=== PATIENT | male | born 1950 ===

== ENCOUNTER 2017-10-24 20:43 | Inpatient (IN) ==
[2017-10-25] MEDS ORDERED: SODIUM CHLORIDE 0.9% 1,000 ML IV SCH (00:30)
[2017-10-25] MEDS ORDERED: SODIUM POLYSTYRENE SULFATE 15 GM/60 ML BOTTLE PO STA (00:52)
[2017-10-25 01:05] LABS: Basophils % 0.5 % (0.0-0.8); Eosinophils % 0.1 % (0.00-10.9); Hematocrit 22.6 VOL% (42.0-52.0); Hemoglobin 7.1 GM/DL (14.0-18.0); Immature Granulocytes % 2.1 %; Immature Granulocytes Absolute 0.17 #; Lymphocytes # 0.4 10*3/uL (1.4-4.0); Lymphocytes % 4.9 % (21.2-54.2); Mean Corpuscular HGB Conc 31.4 GM/DL (32-36); Mean Corpuscular Hemoglobin 31 PG (27-34); Mean Corpuscular Volume 97.4 FL (87-102); Mean Platelet Volume 10.2 FL (9.6-12.0); Monocytes # 0.5 10*3/uL (0.11-0.8); Monocytes % 5.6 % (1.7-12.7); NRBC # 0.05 10*3/uL; Neutrophils # 6.9 10*3/uL (1.4-7.4); Neutrophils % 86.8 % (38.7-73.9); Platelet Count 295 T/CUMM (130-400); Red Blood Count 2.32 MC/CUMM (3.8-5.5); Red Cell Distribution Width 14.9 % (9.3-17.3)
[2017-10-25 01:14] LABS: Albumin 2.3 G/DL (3.4-5.0); Bilirubin,Total 0.5 MG/DL (0.2-1.0); Calcium 6.7 MG/DL (8.5-10.1); Total Protein 6.7 G/DL (6.4-8.3)
[2017-10-25] MEDS: SODIUM BICARB INJ 100 MEQ in SODIUM CHLORIDE 0.9% 1,000 ML IV SCH ×2 (01:21→08:36)
[2017-10-25 01:24] LABS: Potassium 6.1 MMOL/L (3.5-5.1)
[2017-10-25 01:25] LABS: Apearance,Urine CLOUDY (Clear); Bacteria,Urine Many /HPF (Few); Bilirubin,Urine Negative (Negative); Blood, Urine Moderate mg/dL (Negative); Glucose,Urine (UA) 50 mg/dL (Negative); Ketones,Urine Negative (Negative); Nitrite,Urine Negative (Negative); Protein,Urine >=500 MG/DL; Urine Color Yellow (Yellow); Urine Specific Gravity 1.011 (1.001-1.035); Urine Urobilinogen < 2.0 EU/DL (0.2-1.0); WBC,Urine 3 /HPF (0-6)
[2017-10-25 01:48] LABS: Anisocytosis Slight; Lymphocytes 6 % (20-55); Macrocytosis 2+; Platelet Estimate Normal; Segmented Neutrophils 91 % (50-85); Total Cells Counted 100
[2017-10-25 02:05] LABS: Basophils % 0.5 % (0.0-0.8); Hematocrit 22.6 VOL% (42.0-52.0); Immature Granulocytes % 2.3 %; Immature Granulocytes Absolute 0.19 #; Lymphocytes # 0.3 10*3/uL (1.4-4.0); Lymphocytes % 4.2 % (21.2-54.2); Mean Corpuscular Hemoglobin 31 PG (27-34); Mean Corpuscular Volume 98.7 FL (87-102); Mean Platelet Volume 9.5 FL (9.6-12.0); Monocytes # 0.4 10*3/uL (0.11-0.8); Monocytes % 4.4 % (1.7-12.7); NRBC # 0.05 10*3/uL; Neutrophils # 7.2 10*3/uL (1.4-7.4); Neutrophils % 88.6 % (38.7-73.9); Platelet Count 301 T/CUMM (130-400); Red Blood Count 2.29 MC/CUMM (3.8-5.5); Red Cell Distribution Width 14.8 % (9.3-17.3); White Blood Count 8.1 T/CUMM (4-12)
[2017-10-25 02:31] LABS: Lymphocytes 6 % (20-55); Macrocytosis 2+; Platelet Estimate Normal; Segmented Neutrophils 91 % (50-85); Total Cells Counted 100
[2017-10-25 02:35] LABS: Albumin 2.7 G/DL (3.4-5.0); Bilirubin,Total 0.5 MG/DL (0.2-1.0); Calcium 6.5 MG/DL (8.5-10.1); Potassium 5.8 MMOL/L (3.5-5.1); Thyroid Stimulating Hormone 0.724 uIU/ml (0.358-3.74); Total Protein 6.7 G/DL (6.4-8.3)
[2017-10-25 03:08] LABS: Folate 6.1 NG/ML (5.4-24.0)
[2017-10-25] MEDS ORDERED: SODIUM BICARBONATE 50 MEQ/50 ML SYRINGE IV ONE ×3 (06:44→10:03)
[2017-10-25] MEDS ORDERED: INSULIN REGULAR 100 UNIT/ML IV ONE (06:45)
[2017-10-25] MEDS ORDERED: DEXTROSE 50% 25 GM/50 ML VIAL IV ONE (06:46)
[2017-10-25 07:15] LABS: ABG Base Excess -24.4 MMOL/L (-2.5-2.5); ABG HCO3 6.5 MMOL/L (20-26); ABG Oxygen Saturation 98.5 % (95-100); Allen Test Positive
[2017-10-25 07:18] LABS: ABG PCO2 12.5 MM HG (35-48); ABG PH 7.114 (7.35-7.45)
[2017-10-25] MEDS ORDERED: INSULIN LISPRO 100 UNIT/ML SUBCUT SCH (07:30)
[2017-10-25] MEDS ORDERED: ceFAZolin 1,000 MG in SYRINGE 1 EACH IV ONE (08:41)
[2017-10-25 08:43] LABS: INR 1.2; PT Patient Result 12.1 SECS; Partial Thromboplastin Time 37.7 SECS (0-40)
[2017-10-25 08:45] LABS: Lactic Acid 3.3 MMOL/L (0.4-2.0)
[2017-10-25 08:48] LABS: Fibrinogen Quant Value 553 MG% (200-400)
[2017-10-25 08:48] LABS: CKMB % 2.9 %
[2017-10-25 08:54] LABS: Troponin I Only 4.2 NG/ML (0.00-0.045)
[2017-10-25] MEDS ORDERED: amLODIPine 5 MG TABLET PO SCH (09:00)
[2017-10-25] MEDS ORDERED: SODIUM BICARB INJ 150 MEQ in DEXTROSE 5% 850 ML IV SCH (09:00)
[2017-10-25] MEDS ORDERED: PANTOPRAZOLE 40 MG TABLET PO SCH (09:00)
[2017-10-25] MEDS ORDERED: FERROUS SULFATE ER 140 MG TABLET PO SCH (09:00)
[2017-10-25] MEDS ORDERED: amLODIPine 10 MG TABLET PO SCH (09:00)
[2017-10-25] MEDS ORDERED: LIDOCAINE 1%/EPI INJ 20 ML VIAL ONE (09:17)
[2017-10-25] MEDS ORDERED: BUPIVACAINE MPF 0.25% 30 ML VIAL ONE (09:17)
[2017-10-25] MEDS ORDERED: HEPARIN 5,000 UNIT/1 ML VIAL ONE (09:17)
[2017-10-25] MEDS: CALCITRIOL 0.25 MCG CAPSULE PO SCH (09:22)
[2017-10-25] MEDS: ALBUMIN 25% 25 GM in PREMIX 1 EACH IV SCH ×2 (09:44→17:11)
[2017-10-25] MEDS: PANTOPRAZOLE 40 MG VIAL IV SCH (09:44)
[2017-10-25 09:47] LABS: Calcium 6.9 MG/DL (8.5-10.1); Osmolality,Calculated 351.6 MOS/KG (273-304)
[2017-10-25 09:55] LABS: Potassium 6.1 MMOL/L (3.5-5.1)
[2017-10-25] MEDS ORDERED: SODIUM BICARB INJ 150 MEQ in DEXTROSE 5% 1,000 ML IV SCH (10:00)
[2017-10-25 10:18] LABS: Hepatitis A Ab IgM Quant 0.22 Index; Hepatitis A Ab IgM Result Negative (Negative); Hepatitis B Core IgM Result Negative (Negative); Hepatitis B Surface Ag Quant 0.22 Index; Hepatitis B Surface Ag Result Negative (Negative); Hepatitis C Virus Ab Quant 0.11 Index; Hepatitis C Virus Ab Result Negative (Negative)
[2017-10-25] MEDS: NOREPINEPHRINE 8 MG in SODIUM CHLORIDE 0.9% 242 ML IV PRN (10:42)
[2017-10-25] MEDS ORDERED: MIDAZOLAM 2 MG/2 ML VIAL ONE (11:36)
[2017-10-25] MEDS: INSULIN REGULAR 100 UNIT/ML SUBCUT SCH ×3 (12:36→23:34)
[2017-10-25] MEDS ORDERED: EPOETIN ALFA 10,000 UNIT/1 ML VIAL IV PRN (12:58)
[2017-10-25] MEDS ORDERED: HEPARIN 10,000 UNIT/10 ML VIAL IV PRN (12:59)
[2017-10-25 16:30] LABS: Calcium 6.9 MG/DL (8.5-10.1); Potassium 3.3 MMOL/L (3.5-5.1)
[2017-10-25 16:59] LABS: ABG Base Excess -5.5 MMOL/L (-2.5-2.5); ABG HCO3 19.8 MMOL/L (20-26); ABG PCO2 28.4 MM HG (35-48); ABG TCO2 17.7 MMOL/L (23-27)
[2017-10-25 19:39] LABS: CKMB % 3.7 %
[2017-10-25 19:52] LABS: Troponin I Only 56.8 NG/ML (0.00-0.045)
[2017-10-25 20:07] LABS: Allen Test Positive
[2017-10-25 20:08] LABS: ABG Base Excess -5.4 MMOL/L (-2.5-2.5); ABG Oxygen Saturation 97.8 % (95-100); ABG PH 7.526 (7.35-7.45); ABG PO2 134.3 MM HG (80-95); ABG TCO2 17.6 MMOL/L (23-27)
[2017-10-25 20:43] LABS: Basophils % 0.1 % (0.0-0.8); Immature Granulocytes % 0.8 %; Immature Granulocytes Absolute 0.09 #; Lymphocytes # 0.3 10*3/uL (1.4-4.0); Lymphocytes % 2.1 % (21.2-54.2); Mean Corpuscular HGB Conc 33.5 GM/DL (32-36); Mean Corpuscular Hemoglobin 30 PG (27-34); Mean Corpuscular Volume 89.8 FL (87-102); Mean Platelet Volume 9.6 FL (9.6-12.0); Monocytes # 0.8 10*3/uL (0.11-0.8); Monocytes % 7.2 % (1.7-12.7); NRBC # 0.08 10*3/uL; Neutrophils # 10.5 10*3/uL (1.4-7.4); Neutrophils % 89.8 % (38.7-73.9); Platelet Count 196 T/CUMM (130-400); Red Blood Count 1.76 MC/CUMM (3.8-5.5); Red Cell Distribution Width 13.8 % (9.3-17.3); White Blood Count 11.7 T/CUMM (4-12)
[2017-10-25 20:48] LABS: Hemoglobin 5.3 GM/DL (14.0-18.0)
[2017-10-25 20:49] LABS: Hematocrit 15.8 VOL% (42.0-52.0)
[2017-10-25] MEDS ORDERED: INSULIN GLARGINE 100 UNIT/ML SUBCUT SCH (21:00)
[2017-10-25 21:02] LABS: Albumin 3.2 G/DL (3.4-5.0); Bilirubin,Total 0.6 MG/DL (0.2-1.0); Calcium 6.9 MG/DL (8.5-10.1); Osmolality,Calculated 312.1 MOS/KG (273-304); Potassium 3.2 MMOL/L (3.5-5.1); Total Protein 6.2 G/DL (6.4-8.3)
[2017-10-25] MEDS ORDERED: SODIUM CHLORIDE 0.9% 1,000 ML IV PRN (21:05)
[2017-10-25] MEDS ORDERED: FUROSEMIDE 40 MG/4 ML VIAL IV PRN (21:05)
[2017-10-25 21:26] LABS: Hypochromasia 1+; Macrocytosis Slight; Platelet Estimate Adequate
[2017-10-25] MEDS ORDERED: CALCIUM GLUCONATE 1,000 MG in SODIUM CHLORIDE 0.9% 100 ML IV ONE (21:30)
[2017-10-26] MEDS: ONDANSETRON 4 MG/2 ML VIAL IV PRN (01:07)
[2017-10-26] MEDS: ALBUMIN 25% 25 GM in PREMIX 1 EACH IV SCH ×4 (02:44→23:29)
[2017-10-26] MEDS: INSULIN REGULAR 100 UNIT/ML SUBCUT SCH ×3 (05:14→19:14)
[2017-10-26 05:55] LABS: % Iron Saturation 62.6 % (18-50); Uric Acid 6.6 MG/DL (3.5-7.2)
[2017-10-26 05:58] LABS: Albumin 3.1 G/DL (3.4-5.0); Calcium 6.9 MG/DL (8.5-10.1); Potassium 3.2 MMOL/L (3.5-5.1); Total Protein 6.4 G/DL (6.4-8.3)
[2017-10-26 06:57] LABS: Hematocrit 26.8 VOL% (42.0-52.0)
[2017-10-26 07:31] LABS: CKMB % 2.7 %
[2017-10-26 07:44] LABS: Troponin I Only 69.3 NG/ML (0.00-0.045)
[2017-10-26] MEDS ORDERED: SODIUM CHLORIDE 0.9% 1,000 ML IV ONE (09:57)
[2017-10-26] MEDS: ASPIRIN CHEW 81 MG TABLET PO SCH (11:10)
[2017-10-26] MEDS: CALCITRIOL 0.25 MCG CAPSULE PO SCH (11:10)
[2017-10-26] MEDS: PANTOPRAZOLE 40 MG VIAL IV SCH (11:10)
[2017-10-26] MEDS ORDERED: AMIODARONE 150 MG/3 ML VIAL ONE (19:29)
[2017-10-26] MEDS ORDERED: AMIODARONE INJ 150 MG in DEXTROSE 5% 100 ML IV ONE (19:29)
[2017-10-26] MEDS ORDERED: AMIODARONE INJ 450 MG in DEXTROSE 5% 241 ML IV SCH (19:30)
[2017-10-26] MEDS ORDERED: SODIUM CHLORIDE 0.9% 500 ML IV ONE (20:23)
[2017-10-27] MEDS: INSULIN REGULAR 100 UNIT/ML SUBCUT SCH ×5 (00:08→23:36)
[2017-10-27] MEDS: AMIODARONE INJ 450 MG in DEXTROSE 5% 241 ML IV SCH ×3 (05:37→22:32)
[2017-10-27 06:09] LABS: Calcium 7.4 MG/DL (8.5-10.1); Calcium 7.6 MG/DL (8.5-10.1); Osmolality,Calculated 295.5 MOS/KG (273-304); Potassium 3.1 MMOL/L (3.5-5.1)
[2017-10-27 06:15] LABS: Basophils % 0.2 % (0.0-0.8); Hematocrit 25.7 VOL% (42.0-52.0); Hemoglobin 8.9 GM/DL (14.0-18.0); Immature Granulocytes % 1.4 %; Immature Granulocytes Absolute 0.16 #; Lymphocytes # 0.5 10*3/uL (1.4-4.0); Lymphocytes % 4.5 % (21.2-54.2); Mean Corpuscular HGB Conc 34.6 GM/DL (32-36); Mean Corpuscular Hemoglobin 30 PG (27-34); Mean Corpuscular Volume 87.1 FL (87-102); Mean Platelet Volume 11.2 FL (9.6-12.0); Monocytes # 0.6 10*3/uL (0.11-0.8); Monocytes % 4.9 % (1.7-12.7); NRBC # 0.16 10*3/uL; Neutrophils # 10.3 10*3/uL (1.4-7.4); Red Cell Distribution Width 15.1 % (9.3-17.3); White Blood Count 11.6 T/CUMM (4-12)
[2017-10-27 06:17] LABS: Platelet Count 144 T/CUMM (130-400); Red Blood Count 2.95 MC/CUMM (3.8-5.5)
[2017-10-27 06:27] LABS: Band Neutrophils 1 % (0-10); Eosinophils 1 % (0-10); Giant Platelets Few; Hypochromasia 1+; Lymphocytes 6 % (20-55); Macrocytosis Slight; Nucleated Red Blood Cells 1 (0-5); Ovalocytes Slight; Platelet Estimate Normal; Segmented Neutrophils 85 % (50-85); Total Cells Counted 100
[2017-10-27] MEDS: PANTOPRAZOLE 40 MG VIAL IV SCH (09:50)
[2017-10-27] MEDS: CALCITRIOL 0.25 MCG CAPSULE PO SCH (09:50)
[2017-10-27] MEDS: ASPIRIN CHEW 81 MG TABLET PO SCH (09:50)
[2017-10-27] MEDS ORDERED: MAGNESIUM SULF RIDER 2 GM in PREMIX 1 EACH IV PRN (10:31)
[2017-10-27] MEDS: POTASSIUM CHLORIDE 20 MEQ TABLET PO SCH ×2 (13:57→16:02)
[2017-10-27] MEDS: ACETAMINOPHEN 325 MG TABLET PO PRN ×2 (14:33→18:42)
[2017-10-27] MEDS: MORPHINE 4 MG/1 ML VIAL IV PRN (20:02)
[2017-10-28 04:54] LABS: Basophils % 0.1 % (0.0-0.8); Hematocrit 27.6 VOL% (42.0-52.0); Hemoglobin 9.4 GM/DL (14.0-18.0); Immature Granulocytes % 2.2 %; Immature Granulocytes Absolute 0.33 #; Lymphocytes # 0.5 10*3/uL (1.4-4.0); Lymphocytes % 3.1 % (21.2-54.2); Mean Corpuscular HGB Conc 34.1 GM/DL (32-36); Mean Corpuscular Hemoglobin 30 PG (27-34); Mean Corpuscular Volume 88.5 FL (87-102); Mean Platelet Volume 11.4 FL (9.6-12.0); Monocytes # 0.8 10*3/uL (0.11-0.8); Monocytes % 5.3 % (1.7-12.7); NRBC # 0.26 10*3/uL; Neutrophils # 13.6 10*3/uL (1.4-7.4); Neutrophils % 89.3 % (38.7-73.9); Platelet Count 137 T/CUMM (130-400); Red Blood Count 3.12 MC/CUMM (3.8-5.5); Red Cell Distribution Width 15.2 % (9.3-17.3); White Blood Count 15.2 T/CUMM (4-12)
[2017-10-28 05:14] LABS: Calcium 8.5 MG/DL (8.5-10.1); Osmolality,Calculated 280.7 MOS/KG (273-304); Potassium 4.4 MMOL/L (3.5-5.1)
[2017-10-28 05:20] LABS: Calcium 8.6 MG/DL (8.5-10.1); Osmolality,Calculated 280.7 MOS/KG (273-304); Potassium 4.4 MMOL/L (3.5-5.1)
[2017-10-28 05:34] LABS: Band Neutrophils 5 % (0-10); Lymphocytes 8 % (20-55); Platelet Estimate Normal; Segmented Neutrophils 84 % (50-85); Total Cells Counted 100
[2017-10-28] MEDS ORDERED: ASPIRIN 325 MG TABLET PO ONE (06:00)
[2017-10-28] MEDS: MORPHINE 4 MG/1 ML VIAL IV PRN (06:55)
[2017-10-28] MEDS: INSULIN REGULAR 100 UNIT/ML SUBCUT SCH ×3 (06:55→19:04)
[2017-10-28] MEDS: ONDANSETRON 4 MG/2 ML VIAL IV PRN (07:36)
[2017-10-28] MEDS ORDERED: HEPARIN/NACL 0.9% 2 UNITS/ML 1,000 ML IV ONE (07:41)
[2017-10-28] MEDS ORDERED: LIDOCAINE 1% 20 ML VIAL ONE (07:41)
[2017-10-28] MEDS: AMIODARONE INJ 450 MG in DEXTROSE 5% 241 ML IV SCH ×3 (07:49→22:06)
[2017-10-28] MEDS ORDERED: fentaNYL 100 MCG/2 ML VIAL ONE (07:51)
[2017-10-28] MEDS ORDERED: MIDAZOLAM 2 MG/2 ML VIAL ONE (07:51)
[2017-10-28] MEDS ORDERED: DIAZEPAM 5 MG TABLET PO ONE (08:00)
[2017-10-28] MEDS ORDERED: diphenhydrAMINE CAP 25 MG CAPSULE PO ONE (08:00)
[2017-10-28] MEDS: PANTOPRAZOLE 40 MG VIAL IV SCH (09:43)
[2017-10-28] MEDS: CALCITRIOL 0.25 MCG CAPSULE PO SCH (09:48)
[2017-10-28] MEDS: ASPIRIN CHEW 81 MG TABLET PO SCH (09:48)
[2017-10-28] MEDS: NOREPINEPHRINE 8 MG in SODIUM CHLORIDE 0.9% 242 ML IV PRN (15:11)
[2017-10-29] MEDS: INSULIN REGULAR 100 UNIT/ML SUBCUT SCH ×5 (00:03→23:56)
[2017-10-29] MEDS: AMIODARONE INJ 450 MG in DEXTROSE 5% 241 ML IV SCH (05:15)
[2017-10-29] MEDS: ACETAMINOPHEN 325 MG TABLET PO PRN ×2 (05:37→11:19)
[2017-10-29 05:45] LABS: Basophils % 0.2 % (0.0-0.8); Eosinophils # 0.1 10*3/uL (0.0-0.87); Eosinophils % 0.5 % (0.00-10.9); Hematocrit 28.1 VOL% (42.0-52.0); Hemoglobin 9.2 GM/DL (14.0-18.0); Immature Granulocytes % 4.5 %; Immature Granulocytes Absolute 0.61 #; Lymphocytes # 1.1 10*3/uL (1.4-4.0); Lymphocytes % 8.4 % (21.2-54.2); Mean Corpuscular HGB Conc 32.7 GM/DL (32-36); Mean Corpuscular Hemoglobin 30 PG (27-34); Mean Corpuscular Volume 91.8 FL (87-102); Mean Platelet Volume 12.2 FL (9.6-12.0); Monocytes # 0.9 10*3/uL (0.11-0.8); Monocytes % 6.8 % (1.7-12.7); NRBC # 1.01 10*3/uL; Neutrophils # 10.8 10*3/uL (1.4-7.4); Neutrophils % 79.6 % (38.7-73.9); Platelet Count 135 T/CUMM (130-400); Red Blood Count 3.06 MC/CUMM (3.8-5.5); White Blood Count 13.5 T/CUMM (4-12)
[2017-10-29 06:05] LABS: Calcium 8.5 MG/DL (8.5-10.1); Osmolality,Calculated 287.7 MOS/KG (273-304); Potassium 4.2 MMOL/L (3.5-5.1)
[2017-10-29 06:09] LABS: Band Neutrophils 1 % (0-10); Lymphocytes 7 % (20-55); Nucleated Red Blood Cells 7 (0-5); Segmented Neutrophils 91 % (50-85); Total Cells Counted 100
[2017-10-29 06:10] LABS: Microcytosis Slight; Platelet Estimate Adequate
[2017-10-29] MEDS: CALCITRIOL 0.25 MCG CAPSULE PO SCH (09:28)
[2017-10-29] MEDS: ASPIRIN CHEW 81 MG TABLET PO SCH (09:28)
[2017-10-29] MEDS: AMIODARONE 200 MG TABLET PO SCH ×2 (09:29→21:11)
[2017-10-29] MEDS: PANTOPRAZOLE 40 MG VIAL IV SCH ×2 (09:29→10:25)
[2017-10-29] MEDS: PANTOPRAZOLE 40 MG TABLET PO SCH (10:32)
[2017-10-29] MEDS: MORPHINE 4 MG/1 ML VIAL IV PRN (14:50)
[2017-10-30 03:46] LABS: Basophils % 0.3 % (0.0-0.8); Eosinophils # 0.1 10*3/uL (0.0-0.87); Eosinophils % 1.4 % (0.00-10.9); Hematocrit 27.6 VOL% (42.0-52.0); Hemoglobin 9.3 GM/DL (14.0-18.0); Immature Granulocytes % 4.3 %; Immature Granulocytes Absolute 0.43 #; Lymphocytes # 0.6 10*3/uL (1.4-4.0); Lymphocytes % 6.4 % (21.2-54.2); Mean Corpuscular HGB Conc 33.7 GM/DL (32-36); Mean Corpuscular Hemoglobin 30 PG (27-34); Mean Platelet Volume 12.9 FL (9.6-12.0); Monocytes # 0.9 10*3/uL (0.11-0.8); Monocytes % 8.6 % (1.7-12.7); NRBC # 0.76 10*3/uL; Neutrophils # 7.9 10*3/uL (1.4-7.4); Platelet Count 108 T/CUMM (130-400); Red Cell Distribution Width 14.6 % (9.3-17.3)
[2017-10-30 04:13] LABS: Calcium 8.3 MG/DL (8.5-10.1); Osmolality,Calculated 280.7 MOS/KG (273-304); Potassium 3.6 MMOL/L (3.5-5.1)
[2017-10-30] MEDS: INSULIN REGULAR 100 UNIT/ML SUBCUT SCH ×3 (05:59→18:00)
[2017-10-30] MEDS ORDERED: HEPARIN 5,000 UNIT/1 ML VIAL IV ONE (07:38)
[2017-10-30] MEDS: HEPARIN DRIP 25,000 UNITS/500 ML PREMIX IV SCH (08:55)
[2017-10-30] MEDS: AMIODARONE 200 MG TABLET PO SCH ×2 (09:00→21:10)
[2017-10-30] MEDS: ASPIRIN CHEW 81 MG TABLET PO SCH (09:00)
[2017-10-30] MEDS: ROSUVASTATIN 20 MG TABLET PO SCH (09:00)
[2017-10-30] MEDS: CALCITRIOL 0.25 MCG CAPSULE PO SCH (09:00)
[2017-10-30] MEDS: PANTOPRAZOLE 40 MG TABLET PO SCH (09:00)
[2017-10-30] MEDS: MORPHINE 4 MG/1 ML VIAL IV PRN ×3 (09:05→20:35)
[2017-10-30] MEDS ORDERED: ceFAZolin 1,000 MG in SYRINGE 1 EACH IV ONE (10:57)
[2017-10-30] MEDS ORDERED: fentaNYL 100 MCG/2 ML VIAL IV ONE (10:57)
[2017-10-30] MEDS ORDERED: MIDAZOLAM 2 MG/2 ML VIAL IV ONE (10:57)
[2017-10-30] MEDS ORDERED: HEPARIN/NACL 0.9% 2 UNITS/ML 2,000 ML IV ONE (11:04)
[2017-10-30] MEDS ORDERED: ALTEPLASE 6 MG in SODIUM CHLORIDE 0.9% 120 ML IV ONE (11:30)
[2017-10-30] MEDS ORDERED: fentaNYL 100 MCG/2 ML VIAL ONE (11:33)
[2017-10-30] MEDS ORDERED: MIDAZOLAM 2 MG/2 ML VIAL ONE (11:34)
[2017-10-30] MEDS ORDERED: ceFAZolin 1,000 MG VIAL ONE (11:39)
[2017-10-30] MEDS: ACETAMINOPHEN 325 MG TABLET PO PRN (14:30)
[2017-10-31] MEDS: INSULIN REGULAR 100 UNIT/ML SUBCUT SCH ×5 (00:26→21:37)
[2017-10-31 01:55] LABS: Basophils % 0.1 % (0.0-0.8); Eosinophils % 0.2 % (0.00-10.9); Hematocrit 25.5 VOL% (42.0-52.0); Hemoglobin 8.3 GM/DL (14.0-18.0); Immature Granulocytes % 2.4 %; Immature Granulocytes Absolute 0.31 #; Lymphocytes # 0.4 10*3/uL (1.4-4.0); Lymphocytes % 2.7 % (21.2-54.2); Mean Corpuscular HGB Conc 32.5 GM/DL (32-36); Mean Corpuscular Hemoglobin 30 PG (27-34); Mean Corpuscular Volume 93.1 FL (87-102); Mean Platelet Volume 12.6 FL (9.6-12.0); Monocytes # 1.2 10*3/uL (0.11-0.8); Monocytes % 9.1 % (1.7-12.7); NRBC # 0.37 10*3/uL; Neutrophils % 85.5 % (38.7-73.9); Red Blood Count 2.74 MC/CUMM (3.8-5.5); Red Cell Distribution Width 14.6 % (9.3-17.3); White Blood Count 12.9 T/CUMM (4-12)
[2017-10-31 02:04] LABS: Platelet Count 98 T/CUMM (130-400)
[2017-10-31 02:06] LABS: Calcium 7.4 MG/DL (8.5-10.1); Osmolality,Calculated 289.7 MOS/KG (273-304); Potassium 4.2 MMOL/L (3.5-5.1)
[2017-10-31 03:11] LABS: Eosinophils 1 % (0-10); Lymphocytes 2 % (20-55); Nucleated Red Blood Cells 2 (0-5); Segmented Neutrophils 89 % (50-85)
[2017-10-31 03:12] LABS: Burr Cells 2+; Hypochromasia Slight; Platelet Estimate Decreased; Polychromasia 1+
[2017-10-31 03:13] LABS: Ovalocytes 1+; Total Cells Counted 100
[2017-10-31] MEDS: MORPHINE 4 MG/1 ML VIAL IV PRN (06:06)
[2017-10-31] MEDS: AMIODARONE 200 MG TABLET PO SCH ×2 (08:30→21:37)
[2017-10-31] MEDS: CALCITRIOL 0.25 MCG CAPSULE PO SCH (08:30)
[2017-10-31] MEDS: PANTOPRAZOLE 40 MG TABLET PO SCH (08:30)
[2017-10-31] MEDS: ASPIRIN CHEW 81 MG TABLET PO SCH (08:30)
[2017-10-31] MEDS: ROSUVASTATIN 20 MG TABLET PO SCH (08:30)
[2017-10-31] MEDS: NOREPINEPHRINE 8 MG in SODIUM CHLORIDE 0.9% 242 ML IV PRN (10:25)
[2017-10-31] MEDS: HEPARIN DRIP 25,000 UNITS/500 ML PREMIX IV SCH (20:45)
[2017-11-01 03:27] LABS: ABG HCO3 24.2 MMOL/L (20-26); ABG PCO2 37.3 MM HG (35-48); ABG TCO2 25.3 MMOL/L (23-27); Allen Test Positive
[2017-11-01 04:50] LABS: Basophils % 0.2 % (0.0-0.8); Eosinophils # 0.1 10*3/uL (0.0-0.87); Eosinophils % 0.6 % (0.00-10.9); Hematocrit 27.8 VOL% (42.0-52.0); Hemoglobin 8.9 GM/DL (14.0-18.0); Immature Granulocytes % 3.6 %; Immature Granulocytes Absolute 0.59 #; Lymphocytes # 0.7 10*3/uL (1.4-4.0); Lymphocytes % 4.1 % (21.2-54.2); Mean Corpuscular Hemoglobin 30 PG (27-34); Mean Corpuscular Volume 94.2 FL (87-102); Monocytes # 1.5 10*3/uL (0.11-0.8); Monocytes % 9.1 % (1.7-12.7); Neutrophils # 13.4 10*3/uL (1.4-7.4); Neutrophils % 82.4 % (38.7-73.9); Platelet Count 117 T/CUMM (130-400); Red Blood Count 2.95 MC/CUMM (3.8-5.5); Red Cell Distribution Width 15.7 % (9.3-17.3); White Blood Count 16.2 T/CUMM (4-12)
[2017-11-01 05:14] LABS: Calcium 7.3 MG/DL (8.5-10.1); Osmolality,Calculated 282.7 MOS/KG (273-304)
[2017-11-01] MEDS: HEPARIN DRIP 25,000 UNITS/500 ML PREMIX IV SCH ×2 (05:26→20:13)
[2017-11-01 05:37] LABS: Anisocytosis 1+; Band Neutrophils 12 % (0-10); Lymphocytes 6 % (20-55); Nucleated Red Blood Cells 1 (0-5); Poikilocytosis 1+; Segmented Neutrophils 80 % (50-85); Total Cells Counted 100
[2017-11-01] MEDS: INSULIN REGULAR 100 UNIT/ML SUBCUT SCH ×4 (08:17→20:41)
[2017-11-01] MEDS: CALCITRIOL 0.25 MCG CAPSULE PO SCH (09:17)
[2017-11-01] MEDS: ROSUVASTATIN 20 MG TABLET PO SCH (09:18)
[2017-11-01] MEDS: AMIODARONE 200 MG TABLET PO SCH ×2 (09:18→20:40)
[2017-11-01] MEDS: PANTOPRAZOLE 40 MG TABLET PO SCH (09:18)
[2017-11-01] MEDS: ASPIRIN CHEW 81 MG TABLET PO SCH (09:18)
[2017-11-01] MEDS: ONDANSETRON 4 MG/2 ML VIAL IV PRN ×2 (12:15→16:53)
[2017-11-01] MEDS: NOREPINEPHRINE 8 MG in SODIUM CHLORIDE 0.9% 242 ML IV PRN (19:25)
[2017-11-02 04:37] LABS: Basophils % 0.1 % (0.0-0.8); Eosinophils # 0.1 10*3/uL (0.0-0.87); Eosinophils % 0.8 % (0.00-10.9); Hematocrit 25.5 VOL% (42.0-52.0); Hemoglobin 8.2 GM/DL (14.0-18.0); Immature Granulocytes Absolute 0.26 #; Lymphocytes # 0.5 10*3/uL (1.4-4.0); Lymphocytes % 3.8 % (21.2-54.2); Mean Corpuscular HGB Conc 32.2 GM/DL (32-36); Mean Corpuscular Hemoglobin 31 PG (27-34); Mean Corpuscular Volume 95.5 FL (87-102); Mean Platelet Volume 12.9 FL (9.6-12.0); Monocytes % 7.4 % (1.7-12.7); NRBC # 0.12 10*3/uL; Neutrophils # 11.2 10*3/uL (1.4-7.4); Neutrophils % 85.9 % (38.7-73.9); Platelet Count 103 T/CUMM (130-400); Red Blood Count 2.67 MC/CUMM (3.8-5.5); Red Cell Distribution Width 16.4 % (9.3-17.3)
[2017-11-02 05:04] LABS: Albumin 2.5 G/DL (3.4-5.0); Calcium 7.1 MG/DL (8.5-10.1); Osmolality,Calculated 281.2 MOS/KG (273-304); Potassium 4.6 MMOL/L (3.5-5.1); Total Protein 5.8 G/DL (6.4-8.3)
[2017-11-02 05:28] LABS: Eosinophils 1 % (0-10); Lymphocytes 3 % (20-55); Nucleated Red Blood Cells 1 (0-5); Segmented Neutrophils 88 % (50-85); Total Cells Counted 100
[2017-11-02 05:30] LABS: Giant Platelets Few; Hypochromasia 1+; Platelet Estimate Decreased; Polychromasia Few
[2017-11-02] MEDS: INSULIN REGULAR 100 UNIT/ML SUBCUT SCH ×4 (07:49→22:05)
[2017-11-02] MEDS: ASPIRIN CHEW 81 MG TABLET PO SCH (09:39)
[2017-11-02] MEDS: ROSUVASTATIN 20 MG TABLET PO SCH (09:39)
[2017-11-02] MEDS: AMIODARONE 200 MG TABLET PO SCH ×2 (09:39→22:05)
[2017-11-02] MEDS: CALCITRIOL 0.25 MCG CAPSULE PO SCH (09:39)
[2017-11-02] MEDS: PANTOPRAZOLE 40 MG TABLET PO SCH (09:39)
[2017-11-02] MEDS: HEPARIN DRIP 25,000 UNITS/500 ML PREMIX IV SCH (14:02)
[2017-11-03 04:33] LABS: Basophils % 0.1 % (0.0-0.8); Eosinophils # 0.1 10*3/uL (0.0-0.87); Eosinophils % 0.7 % (0.00-10.9); Hematocrit 25.1 VOL% (42.0-52.0); Immature Granulocytes % 1.9 %; Immature Granulocytes Absolute 0.22 #; Lymphocytes # 0.4 10*3/uL (1.4-4.0); Lymphocytes % 3.4 % (21.2-54.2); Mean Corpuscular HGB Conc 31.9 GM/DL (32-36); Mean Corpuscular Hemoglobin 30 PG (27-34); Mean Corpuscular Volume 93.3 FL (87-102); Mean Platelet Volume 12.9 FL (9.6-12.0); Monocytes # 0.6 10*3/uL (0.11-0.8); Monocytes % 5.6 % (1.7-12.7); NRBC # 0.03 10*3/uL; Neutrophils # 10.1 10*3/uL (1.4-7.4); Neutrophils % 88.3 % (38.7-73.9); Platelet Count 127 T/CUMM (130-400); Red Blood Count 2.69 MC/CUMM (3.8-5.5); Red Cell Distribution Width 17.2 % (9.3-17.3); White Blood Count 11.5 T/CUMM (4-12)
[2017-11-03 05:05] LABS: Calcium 7.4 MG/DL (8.5-10.1); Osmolality,Calculated 277.7 MOS/KG (273-304)
[2017-11-03 05:15] LABS: Eosinophils 1 % (0-10); Hypochromasia 1+; Lymphocytes 5 % (20-55); Nucleated Red Blood Cells 1 (0-5); Ovalocytes Slight; Platelet Estimate Normal; Segmented Neutrophils 92 % (50-85); Total Cells Counted 100
[2017-11-03 05:18] LABS: Albumin 2.8 G/DL (3.4-5.0); Bilirubin,Total 0.9 MG/DL (0.2-1.0); Calcium 7.1 MG/DL (8.5-10.1); Osmolality,Calculated 277.7 MOS/KG (273-304); Total Protein 6.2 G/DL (6.4-8.3)
[2017-11-03] MEDS: INSULIN REGULAR 100 UNIT/ML SUBCUT SCH ×4 (07:30→21:30)
[2017-11-03] MEDS ORDERED: ceFAZolin 1,000 MG in SYRINGE 1 EACH IV ONE (08:00)
[2017-11-03] MEDS ORDERED: VANCOMYCIN 500 MG VIAL ONE (08:03)
[2017-11-03] MEDS: SODIUM CHLORIDE 0.9% 250 ML IV SCH (08:25)
[2017-11-03] MEDS ORDERED: ceFAZolin 1,000 MG VIAL ONE (08:29)
[2017-11-03] MEDS ORDERED: PROPOFOL 200 MG/20 ML VIAL IV ONE (09:24)
[2017-11-03] MEDS ORDERED: GLYCOPYRROLATE 0.4 MG/2 ML VIAL ONE (09:24)
[2017-11-03] MEDS ORDERED: fentaNYL 100 MCG/2 ML VIAL ONE (09:24)
[2017-11-03] MEDS ORDERED: SEVOFLURANE 1 UNIT/15 MINUTE INH ONE (09:24)
[2017-11-03] MEDS ORDERED: PHENYLEPHRINE 1 MG/10 ML SYRINGE IV ONE (09:25)
[2017-11-03] MEDS ORDERED: DEXTROSE 50% 25 GM/50 ML VIAL IV PRN (09:31)
[2017-11-03] MEDS ORDERED: GLUCAGON 1 MG VIAL IM PRN (09:31)
[2017-11-03] MEDS: MORPHINE 4 MG/1 ML VIAL IV PRN ×2 (10:55→20:34)
[2017-11-03] MEDS ORDERED: KETOROLAC 30 MG/1 ML VIAL IV ONE (12:07)
[2017-11-03] MEDS: PANTOPRAZOLE 40 MG TABLET PO SCH (13:39)
[2017-11-03] MEDS: ROSUVASTATIN 20 MG TABLET PO SCH (13:39)
[2017-11-03] MEDS: CALCITRIOL 0.25 MCG CAPSULE PO SCH (13:39)
[2017-11-03] MEDS: AMIODARONE 200 MG TABLET PO SCH ×2 (13:39→21:30)
[2017-11-03] MEDS: ASPIRIN CHEW 81 MG TABLET PO SCH (13:42)
[2017-11-03] MEDS: KETOROLAC 10 MG TABLET PO PRN (15:10)
[2017-11-04 04:58] LABS: Basophils % 0.3 % (0.0-0.8); Eosinophils % 0.3 % (0.00-10.9); Hematocrit 32.9 VOL% (42.0-52.0); Immature Granulocytes % 1.2 %; Immature Granulocytes Absolute 0.13 #; Lymphocytes # 0.4 10*3/uL (1.4-4.0); Lymphocytes % 3.6 % (21.2-54.2); Mean Corpuscular HGB Conc 33.1 GM/DL (32-36); Mean Corpuscular Hemoglobin 30 PG (27-34); Mean Corpuscular Volume 90.4 FL (87-102); Monocytes # 0.7 10*3/uL (0.11-0.8); Monocytes % 6.2 % (1.7-12.7); NRBC # 0.03 10*3/uL; Neutrophils # 9.8 10*3/uL (1.4-7.4); Neutrophils % 88.4 % (38.7-73.9); Platelet Count 110 T/CUMM (130-400); Red Blood Count 3.64 MC/CUMM (3.8-5.5); Red Cell Distribution Width 16.4 % (9.3-17.3); White Blood Count 11.1 T/CUMM (4-12)
[2017-11-04 05:01] LABS: Hemoglobin 10.9 GM/DL (14.0-18.0)
[2017-11-04 05:25] LABS: Calcium 7.6 MG/DL (8.5-10.1); Potassium 4.2 MMOL/L (3.5-5.1)
[2017-11-04 05:28] LABS: Albumin 2.8 G/DL (3.4-5.0); Bilirubin,Total 1.3 MG/DL (0.2-1.0); Calcium 7.6 MG/DL (8.5-10.1); Potassium 4.3 MMOL/L (3.5-5.1); Total Protein 6.6 G/DL (6.4-8.3)
[2017-11-04 06:38] LABS: Band Neutrophils 14 % (0-10); Lymphocytes 2 % (20-55); Segmented Neutrophils 78 % (50-85); Total Cells Counted 100
[2017-11-04 06:39] LABS: Acanthocytes 1+; Anisocytosis 1+; Poikilocytosis 2+
[2017-11-04 06:41] LABS: Target Cells Slight
[2017-11-04] MEDS: SODIUM CHLORIDE 0.9% 250 ML IV SCH ×2 (07:00→10:00)
[2017-11-04] MEDS: AMIODARONE 200 MG TABLET PO SCH ×2 (08:50→20:29)
[2017-11-04] MEDS: CALCITRIOL 0.25 MCG CAPSULE PO SCH (08:50)
[2017-11-04] MEDS: PANTOPRAZOLE 40 MG TABLET PO SCH (08:50)
[2017-11-04] MEDS: ASPIRIN CHEW 81 MG TABLET PO SCH (08:50)
[2017-11-04] MEDS: CARVEDILOL 3.125 MG TABLET PO SCH ×2 (08:50→20:29)
[2017-11-04] MEDS: ROSUVASTATIN 20 MG TABLET PO SCH (08:50)
[2017-11-04] MEDS: INSULIN REGULAR 100 UNIT/ML SUBCUT SCH ×4 (08:50→20:29)
[2017-11-04] MEDS: NOREPINEPHRINE 8 MG in SODIUM CHLORIDE 0.9% 242 ML IV PRN (19:05)
[2017-11-04] MEDS: MORPHINE 4 MG/1 ML VIAL IV PRN (21:58)
[2017-11-05] MEDS: SODIUM CHLORIDE 0.9% 250 ML IV SCH ×3 (01:26→22:31)
[2017-11-05 04:19] LABS: Basophils % 0.3 % (0.0-0.8); Eosinophils # 0.1 10*3/uL (0.0-0.87); Eosinophils % 0.5 % (0.00-10.9); Hematocrit 33.6 VOL% (42.0-52.0); Hemoglobin 11.1 GM/DL (14.0-18.0); Immature Granulocytes Absolute 0.12 #; Lymphocytes # 0.4 10*3/uL (1.4-4.0); Lymphocytes % 3.4 % (21.2-54.2); Mean Corpuscular Hemoglobin 30 PG (27-34); Mean Corpuscular Volume 90.3 FL (87-102); Mean Platelet Volume 12.4 FL (9.6-12.0); Monocytes # 0.6 10*3/uL (0.11-0.8); Monocytes % 4.7 % (1.7-12.7); NRBC # 0.05 10*3/uL; Neutrophils # 10.6 10*3/uL (1.4-7.4); Neutrophils % 90.1 % (38.7-73.9); Platelet Count 136 T/CUMM (130-400); Red Blood Count 3.72 MC/CUMM (3.8-5.5); Red Cell Distribution Width 16.4 % (9.3-17.3); White Blood Count 11.8 T/CUMM (4-12)
[2017-11-05 05:00] LABS: Eosinophils 4 % (0-10); Hypochromasia 1+; Lymphocytes 5 % (20-55); Ovalocytes Slight; Platelet Estimate Normal; Segmented Neutrophils 84 % (50-85); Total Cells Counted 100
[2017-11-05 05:28] LABS: Calcium 7.6 MG/DL (8.5-10.1); Osmolality,Calculated 275.5 MOS/KG (273-304)
[2017-11-05] MEDS: INSULIN REGULAR 100 UNIT/ML SUBCUT SCH ×4 (08:41→20:01)
[2017-11-05] MEDS: CALCITRIOL 0.25 MCG CAPSULE PO SCH (08:42)
[2017-11-05] MEDS: KETOROLAC 10 MG TABLET PO PRN (08:42)
[2017-11-05] MEDS: ROSUVASTATIN 20 MG TABLET PO SCH (08:44)
[2017-11-05] MEDS: ASPIRIN CHEW 81 MG TABLET PO SCH (08:45)
[2017-11-05] MEDS: PANTOPRAZOLE 40 MG TABLET PO SCH (08:45)
[2017-11-05] MEDS: AMIODARONE 200 MG TABLET PO SCH (08:45)
[2017-11-05] MEDS: CARVEDILOL 3.125 MG TABLET PO SCH ×2 (08:48→20:01)
[2017-11-06 03:28] LABS: ABG Base Excess -1.6 MMOL/L (-2.5-2.5); ABG HCO3 23.1 MMOL/L (20-26); ABG Oxygen Saturation 98.1 % (95-100); ABG PCO2 40.8 MM HG (35-48); ABG TCO2 21.8 MMOL/L (23-27); Allen Test Positive
[2017-11-06] MEDS: NOREPINEPHRINE 8 MG in SODIUM CHLORIDE 0.9% 242 ML IV PRN (03:56)
[2017-11-06 05:58] LABS: Basophils % 0.2 % (0.0-0.8); Eosinophils # 0.1 10*3/uL (0.0-0.87); Eosinophils % 0.7 % (0.00-10.9); Hematocrit 27.5 VOL% (42.0-52.0); Hemoglobin 8.9 GM/DL (14.0-18.0); Immature Granulocytes % 1.1 %; Immature Granulocytes Absolute 0.12 #; Lymphocytes # 0.4 10*3/uL (1.4-4.0); Lymphocytes % 3.7 % (21.2-54.2); Mean Corpuscular HGB Conc 32.4 GM/DL (32-36); Mean Corpuscular Hemoglobin 31 PG (27-34); Mean Corpuscular Volume 94.5 FL (87-102); Mean Platelet Volume 12.6 FL (9.6-12.0); Monocytes # 0.6 10*3/uL (0.11-0.8); Monocytes % 5.1 % (1.7-12.7); NRBC # 0.06 10*3/uL; Neutrophils # 9.8 10*3/uL (1.4-7.4); Neutrophils % 89.2 % (38.7-73.9); Platelet Count 121 T/CUMM (130-400); Red Blood Count 2.91 MC/CUMM (3.8-5.5)
[2017-11-06 06:18] LABS: Calcium 7.8 MG/DL (8.5-10.1); Osmolality,Calculated 271.5 MOS/KG (273-304); Potassium 4.8 MMOL/L (3.5-5.1)
[2017-11-06 06:19] LABS: Burr Cells Slight; Eosinophils 1 % (0-10); Hypochromasia 1+; Lymphocytes 3 % (20-55); Nucleated Red Blood Cells 1 (0-5); Ovalocytes Slight; Platelet Estimate Normal; Segmented Neutrophils 92 % (50-85); Total Cells Counted 100
[2017-11-06] MEDS: ROSUVASTATIN 20 MG TABLET PO SCH (09:11)
[2017-11-06] MEDS: ASPIRIN CHEW 81 MG TABLET PO SCH (09:11)
[2017-11-06] MEDS: INSULIN REGULAR 100 UNIT/ML SUBCUT SCH (09:11)
[2017-11-06] MEDS: CALCITRIOL 0.25 MCG CAPSULE PO SCH (09:11)
[2017-11-06] MEDS: PANTOPRAZOLE 40 MG TABLET PO SCH (09:11)
[2017-11-06] MEDS: CARVEDILOL 3.125 MG TABLET PO SCH (09:12)
[2017-11-06] MEDS: AMIODARONE 200 MG TABLET PO SCH (09:14)
[2017-11-06 11:33] VITALS: BP 81/59
== END 2017-11-06 11:40 | DRG 673 ==
LOC: N.TELES 22:36 → SUATTDRO 10-25 00:23 → N.ICU 10-25 07:50
PROVIDERS: ADMIT Internal Medicine; ATTEND Internal Medicine

== ENCOUNTER 2018-02-15 14:00 | Inpatient (IN) ==
[2018-02-15] MEDS ORDERED: ACETAMINOPHEN 325 MG TABLET PO PRN (17:27)
[2018-02-15] MEDS ORDERED: ALUMINUM/MAGNES/SIMETH MAX STR 30 ML UDCUP PO PRN (17:29)
[2018-02-15] MEDS ORDERED: ONDANSETRON 4 MG TABLET PO PRN (17:29)
[2018-02-15] MEDS: CARVEDILOL 3.125 MG TABLET PO SCH (21:37)
[2018-02-15] MEDS: MELATONIN 3 MG TABLET PO SCH (21:37)
[2018-02-15] MEDS: ATORVASTATIN 80 MG TABLET PO SCH (21:37)
[2018-02-15] MEDS: ONDANSETRON 4 MG/2 ML VIAL IV PRN (21:44)
[2018-02-16] MEDS: hydrALAZINE 20 MG/1 ML VIAL IV PRN ×2 (00:02→18:03)
[2018-02-16] MEDS ORDERED: hydrALAZINE 20 MG/1 ML VIAL IV ONE (04:51)
[2018-02-16 05:51] LABS: Basophils % 0.4 % (0.0-0.8); Hematocrit 36.2 VOL% (42.0-52.0); Hemoglobin 11.4 GM/DL (14.0-18.0); Immature Granulocytes % 0.1 %; Immature Granulocytes Absolute 0.01 #; Lymphocytes # 1.2 10*3/uL (1.4-4.0); Lymphocytes % 17.2 % (21.2-54.2); Mean Corpuscular HGB Conc 31.5 GM/DL (32-36); Mean Corpuscular Hemoglobin 30 PG (27-34); Mean Corpuscular Volume 96.3 FL (87-102); Mean Platelet Volume 11.3 FL (9.6-12.0); Monocytes # 0.4 10*3/uL (0.11-0.8); Monocytes % 5.8 % (1.7-12.7); Neutrophils # 5.1 10*3/uL (1.4-7.4); Neutrophils % 76.5 % (38.7-73.9); Platelet Count 199 T/CUMM (130-400); Red Blood Count 3.76 MC/CUMM (3.8-5.5); Red Cell Distribution Width 14.4 % (9.3-17.3); White Blood Count 6.7 T/CUMM (4-12)
[2018-02-16] MEDS: ONDANSETRON 4 MG/2 ML VIAL IV PRN ×2 (05:55→11:11)
[2018-02-16 06:14] LABS: Albumin 3.5 G/DL (3.4-5.0); Bilirubin,Total 1.3 MG/DL (0.2-1.0); Calcium 8.8 MG/DL (8.5-10.1); Osmolality,Calculated 283.8 MOS/KG (273-304); Potassium 3.3 MMOL/L (3.5-5.1); Total Protein 7.4 G/DL (6.4-8.3)
[2018-02-16] MEDS ORDERED: methylPREDNISolone SOD SUC 40 MG/1 ML VIAL IV ONE (08:44)
[2018-02-16] MEDS ORDERED: cefTRIAXone 1,000 MG in SYRINGE 1 EACH IV ONE (08:44)
[2018-02-16] MEDS: ALBUTEROL/IPRATROPIUM 3 ML NEB RESP TX SCH ×3 (09:00→19:41)
[2018-02-16 11:04] LABS: Hepatitis A Ab IgM Quant 0.16 Index; Hepatitis A Ab IgM Result Negative (Negative); Hepatitis B Core IgM Quant < 0.05 Index; Hepatitis B Core IgM Result Negative (Negative); Hepatitis B Surface Ag Quant < 0.10 Index; Hepatitis B Surface Ag Result Negative (Negative); Hepatitis C Virus Ab Quant 0.13 Index; Hepatitis C Virus Ab Result Negative (Negative)
[2018-02-16] MEDS: CETIRIZINE 10 MG TABLET PO SCH (11:14)
[2018-02-16] MEDS: FAMOTIDINE 20 MG TABLET PO SCH (11:14)
[2018-02-16] MEDS: PANTOPRAZOLE 40 MG TABLET PO SCH (11:14)
[2018-02-16] MEDS: ASPIRIN CHEW 81 MG TABLET PO SCH (11:14)
[2018-02-16] MEDS: AMIODARONE 200 MG TABLET PO SCH (11:14)
[2018-02-16] MEDS: CALCITRIOL 0.25 MCG CAPSULE PO SCH (11:14)
[2018-02-16] MEDS: CARVEDILOL 3.125 MG TABLET PO SCH ×2 (11:14→21:10)
[2018-02-16] MEDS: AMOXICILLIN/CLAV 500 MG TABLET PO SCH (11:15)
[2018-02-16] MEDS ORDERED: PROMETHAZINE 25 MG/1 ML VIAL IM ONE (12:44)
[2018-02-16] MEDS ORDERED: HEPARIN 10,000 UNIT/10 ML VIAL IV SCH (17:00)
[2018-02-16] MEDS: ATORVASTATIN 80 MG TABLET PO SCH (21:10)
[2018-02-16] MEDS: MELATONIN 3 MG TABLET PO SCH (21:10)
[2018-02-17] MEDS: ALBUTEROL/IPRATROPIUM 3 ML NEB RESP TX SCH ×4 (00:30→19:24)
[2018-02-17] MEDS: hydrALAZINE 20 MG/1 ML VIAL IV PRN ×2 (08:34→16:16)
[2018-02-17] MEDS ORDERED: LIDOCAINE 100 MG/5 ML SYRINGE ONE (12:45)
[2018-02-17] MEDS ORDERED: PROPOFOL 200 MG/20 ML VIAL IV ONE (12:45)
[2018-02-17] MEDS ORDERED: cloNIDine 0.3 MG/24 HR PATCH TRANSDERM SCH (13:30)
[2018-02-17] MEDS ORDERED: SCOPOLAMINE 1.5 MG PATCH TRANSDERM SCH (14:00)
[2018-02-17] MEDS: FAMOTIDINE 20 MG TABLET PO SCH (14:12)
[2018-02-17] MEDS: ASPIRIN CHEW 81 MG TABLET PO SCH (14:12)
[2018-02-17] MEDS: CARVEDILOL 3.125 MG TABLET PO SCH ×2 (14:12→20:30)
[2018-02-17] MEDS: PANTOPRAZOLE 40 MG TABLET PO SCH (14:12)
[2018-02-17] MEDS: AMIODARONE 200 MG TABLET PO SCH (14:12)
[2018-02-17] MEDS: CALCITRIOL 0.25 MCG CAPSULE PO SCH (14:13)
[2018-02-17] MEDS: CETIRIZINE 10 MG TABLET PO SCH (14:13)
[2018-02-17] MEDS: AMOXICILLIN/CLAV 500 MG TABLET PO SCH (14:25)
[2018-02-17] MEDS: AZELASTINE NASAL 137 MCG/SPRAY 30 ML BOTTLE BOTH NARES SCH ×2 (18:07→20:35)
[2018-02-17] MEDS: FLUTICASONE 50 MCG NASAL SPRAY 16 GM BOTTLE BOTH NARES SCH (18:07)
[2018-02-17] MEDS: DEXT 5% NACL 0.45% KCL 20 MEQ 20 MEQ/1,000 ML BAG IV SCH (20:29)
[2018-02-17] MEDS: MELATONIN 3 MG TABLET PO SCH (20:30)
[2018-02-17] MEDS: ATORVASTATIN 80 MG TABLET PO SCH (20:31)
[2018-02-18] MEDS: ALBUTEROL/IPRATROPIUM 3 ML NEB RESP TX SCH ×4 (00:17→19:42)
[2018-02-18 07:11] LABS: Calcium 8.3 MG/DL (8.5-10.1); Osmolality,Calculated 275.5 MOS/KG (273-304); Thyroid Stimulating Hormone 0.963 uIU/ml (0.358-3.74)
[2018-02-18] MEDS ORDERED: DEXAMETHASONE 4 MG/1 ML VIAL IM ONE (10:27)
[2018-02-18] MEDS ORDERED: methylPREDNISolone ACETATE 80 MG/1 ML VIAL IM ONE (10:28)
[2018-02-18] MEDS ORDERED: cefTRIAXone 1,000 MG in SYRINGE 1 EACH IV ONE (10:29)
[2018-02-18] MEDS: PANTOPRAZOLE 40 MG TABLET PO SCH (12:08)
[2018-02-18] MEDS: CALCITRIOL 0.25 MCG CAPSULE PO SCH (12:08)
[2018-02-18] MEDS: CARVEDILOL 3.125 MG TABLET PO SCH ×2 (12:08→20:57)
[2018-02-18] MEDS: CETIRIZINE 10 MG TABLET PO SCH (12:08)
[2018-02-18] MEDS: ASPIRIN CHEW 81 MG TABLET PO SCH (12:08)
[2018-02-18] MEDS: MONTELUKAST 10 MG TABLET PO SCH (12:08)
[2018-02-18] MEDS: AMIODARONE 200 MG TABLET PO SCH (12:08)
[2018-02-18] MEDS: FAMOTIDINE 20 MG TABLET PO SCH (12:09)
[2018-02-18] MEDS: AZELASTINE NASAL 137 MCG/SPRAY 30 ML BOTTLE BOTH NARES SCH ×2 (12:11→21:08)
[2018-02-18] MEDS: FLUTICASONE 50 MCG NASAL SPRAY 16 GM BOTTLE BOTH NARES SCH (12:11)
[2018-02-18] MEDS ORDERED: METOCLOPRAMIDE 5 MG TABLET PO ONE (13:00)
[2018-02-18] MEDS: METOCLOPRAMIDE 10 MG/2 ML VIAL IV SCH ×2 (17:21→20:57)
[2018-02-18] MEDS: ATORVASTATIN 80 MG TABLET PO SCH (20:57)
[2018-02-18] MEDS: MELATONIN 3 MG TABLET PO SCH (20:57)
[2018-02-19] MEDS: ALBUTEROL/IPRATROPIUM 3 ML NEB RESP TX SCH ×3 (00:19→13:14)
[2018-02-19] MEDS: DEXT 5% NACL 0.45% KCL 20 MEQ 20 MEQ/1,000 ML BAG IV SCH (04:09)
[2018-02-19 08:17] LABS: Hematocrit 34.9 VOL% (42.0-52.0); Hemoglobin 11.1 GM/DL (14.0-18.0); Immature Granulocytes % 0.3 %; Immature Granulocytes Absolute 0.02 #; Lymphocytes # 0.7 10*3/uL (1.4-4.0); Lymphocytes % 9.9 % (21.2-54.2); Mean Corpuscular HGB Conc 31.8 GM/DL (32-36); Mean Corpuscular Hemoglobin 31 PG (27-34); Mean Platelet Volume 10.9 FL (9.6-12.0); Monocytes # 0.4 10*3/uL (0.11-0.8); Monocytes % 6.1 % (1.7-12.7); Neutrophils # 5.5 10*3/uL (1.4-7.4); Neutrophils % 83.7 % (38.7-73.9); Platelet Count 186 T/CUMM (130-400); Red Blood Count 3.56 MC/CUMM (3.8-5.5); Red Cell Distribution Width 14.6 % (9.3-17.3); White Blood Count 6.6 T/CUMM (4-12)
[2018-02-19 08:40] LABS: Calcium 8.3 MG/DL (8.5-10.1); Osmolality,Calculated 287.5 MOS/KG (273-304); Potassium 3.8 MMOL/L (3.5-5.1)
[2018-02-19] MEDS: FLUTICASONE 50 MCG NASAL SPRAY 16 GM BOTTLE BOTH NARES SCH (09:00)
[2018-02-19] MEDS: FAMOTIDINE 20 MG TABLET PO SCH (09:20)
[2018-02-19] MEDS: MONTELUKAST 10 MG TABLET PO SCH (09:21)
[2018-02-19] MEDS: METOCLOPRAMIDE 10 MG/2 ML VIAL IV SCH ×2 (09:21→13:17)
[2018-02-19] MEDS: CALCITRIOL 0.25 MCG CAPSULE PO SCH (09:21)
[2018-02-19] MEDS: ASPIRIN CHEW 81 MG TABLET PO SCH (09:21)
[2018-02-19] MEDS: CARVEDILOL 3.125 MG TABLET PO SCH (09:21)
[2018-02-19] MEDS: PANTOPRAZOLE 40 MG TABLET PO SCH (09:21)
[2018-02-19] MEDS: CETIRIZINE 10 MG TABLET PO SCH (09:21)
[2018-02-19] MEDS: AZELASTINE NASAL 137 MCG/SPRAY 30 ML BOTTLE BOTH NARES SCH (09:22)
[2018-02-19] MEDS: AMIODARONE 200 MG TABLET PO SCH (09:25)
[2018-02-19 11:30] VITALS: BP 161/76
== END 2018-02-19 13:35 | disposition home health service (06) | DRG 73 ==
LOC: N.CC 16:47 → SUATTDRO 16:47 → N.5E 20:32
PROVIDERS: ADMIT Internal Medicine; ATTEND Hospitalist

== ENCOUNTER 2018-09-03 16:50 | Inpatient (IN) ==
[2018-09-03] MEDS ORDERED: ONDANSETRON 4 MG/2 ML VIAL IV PRN (20:15)
[2018-09-03] MEDS ORDERED: ALBUTEROL 2.5 MG/3 ML NEB RESP TX PRN (20:18)
[2018-09-03] MEDS ORDERED: ACETAMINOPHEN 325 MG TABLET PO PRN (20:19)
[2018-09-03] MEDS ORDERED: DEXTROSE 5% NACL 0.9% 1,000 ML IV SCH (21:00)
[2018-09-03] MEDS: DEXTROSE 50% 25 GM/50 ML SYRINGE IV PRN (21:30)
[2018-09-03] MEDS: ATORVASTATIN 40 MG TABLET PO SCH (21:30)
[2018-09-04] MEDS: DEXTROSE 50% 25 GM/50 ML SYRINGE IV PRN ×5 (01:30→15:28)
[2018-09-04] MEDS: DEXTROSE 10% 1,000 ML IV SCH ×2 (01:44→13:15)
[2018-09-04 04:45] LABS: Basophils % 0.1 % (0.0-0.8); Eosinophils # 0.1 10*3/uL (0.0-0.87); Eosinophils % 1.3 % (0.00-10.9); Hematocrit 30.5 VOL% (42.0-52.0); Hemoglobin 9.1 GM/DL (14.0-18.0); Immature Granulocytes % 0.8 %; Immature Granulocytes Absolute 0.08 #; Lymphocytes % 10.5 % (21.2-54.2); Mean Corpuscular HGB Conc 29.8 GM/DL (32-36); Mean Platelet Volume 9.6 FL (9.6-12.0); Monocytes % 11.8 % (1.7-12.7); Neutrophils % 75.5 % (38.7-73.9); Platelet Count 201 T/CUMM (130-400); Red Blood Count 3.05 MC/CUMM (3.8-5.5); Red Cell Distribution Width 15.3 % (9.3-17.3); White Blood Count 9.9 T/CUMM (4-12)
[2018-09-04 05:28] LABS: Osmolality,Calculated 271.4 MOS/KG (273-304)
[2018-09-04] MEDS: PANTOPRAZOLE 40 MG TABLET PO SCH (08:33)
[2018-09-04] MEDS: HEPARIN 5,000 UNIT/1 ML VIAL SUBCUT SCH ×2 (08:33→21:12)
[2018-09-04] MEDS ORDERED: HEPARIN 10,000 UNIT/10 ML VIAL IV SCH (11:30)
[2018-09-04] MEDS: DEXTROSE 10% 500 ML IV SCH (13:15)
[2018-09-04] MEDS: cefTRIAXone 1,000 MG in SYRINGE 1 EACH IV SCH (13:28)
[2018-09-04] MEDS: metroNIDAZOLE INJ 500 MG in PREMIX 1 EACH IV SCH ×3 (13:29→23:45)
[2018-09-04] MEDS: HYDROCORTISONE 100 MG VIAL IV SCH ×2 (16:37→23:40)
[2018-09-04] MEDS: ATORVASTATIN 40 MG TABLET PO SCH (21:12)
[2018-09-04] MEDS: LOPERAMIDE 2 MG CAPSULE PO PRN ×2 (21:13→23:45)
[2018-09-05] MEDS: DEXTROSE 10% 500 ML IV SCH (01:38)
[2018-09-05 06:35] LABS: Calcium 7.5 MG/DL (8.5-10.1); Osmolality,Calculated 269.4 MOS/KG (273-304)
[2018-09-05] MEDS: HYDROCORTISONE 100 MG VIAL IV SCH (08:26)
[2018-09-05] MEDS: cefTRIAXone 1,000 MG in SYRINGE 1 EACH IV SCH (08:26)
[2018-09-05] MEDS: HEPARIN 5,000 UNIT/1 ML VIAL SUBCUT SCH ×2 (08:26→22:44)
[2018-09-05] MEDS: metroNIDAZOLE INJ 500 MG in PREMIX 1 EACH IV SCH (08:27)
[2018-09-05] MEDS: PANTOPRAZOLE 40 MG TABLET PO SCH (08:29)
[2018-09-05] MEDS: HYDROCORTISONE 10 MG TABLET PO SCH ×2 (09:45→22:42)
[2018-09-05] MEDS: hydrALAZINE 25 MG TABLET PO SCH ×2 (09:45→22:42)
[2018-09-05] MEDS: METOCLOPRAMIDE 5 MG TABLET PO SCH ×2 (09:45→22:41)
[2018-09-05] MEDS: CARVEDILOL 3.125 MG TABLET PO SCH ×2 (09:45→22:42)
[2018-09-05] MEDS: AMIODARONE 200 MG TABLET PO SCH (09:45)
[2018-09-05] MEDS: SEVELAMER CARBONATE 800 MG TABLET PO SCH ×2 (12:26→16:23)
[2018-09-05] MEDS ORDERED: INSULIN ASPART PROTAMINE/ASPART 70/30 100 UNIT/ML SUBCUT SCH (21:00)
[2018-09-05] MEDS: ATORVASTATIN 40 MG TABLET PO SCH (22:43)
[2018-09-05] MEDS ORDERED: ZALEPLON 5 MG CAPSULE PO PRN (23:22)
[2018-09-06 05:53] LABS: Calcium 7.6 MG/DL (8.5-10.1); Osmolality,Calculated 266.5 MOS/KG (273-304)
[2018-09-06] MEDS ORDERED: POTASSIUM CHLORIDE 20 MEQ TABLET PO ONE (07:34)
[2018-09-06] MEDS: HEPARIN 5,000 UNIT/1 ML VIAL SUBCUT SCH (08:22)
[2018-09-06] MEDS: hydrALAZINE 25 MG TABLET PO SCH (08:23)
[2018-09-06] MEDS: AMIODARONE 200 MG TABLET PO SCH (08:23)
[2018-09-06] MEDS: CARVEDILOL 3.125 MG TABLET PO SCH (08:23)
[2018-09-06] MEDS: SEVELAMER CARBONATE 800 MG TABLET PO SCH (08:23)
[2018-09-06] MEDS: METOCLOPRAMIDE 5 MG TABLET PO SCH (08:23)
[2018-09-06] MEDS: PANTOPRAZOLE 40 MG TABLET PO SCH (08:23)
[2018-09-06 09:00] VITALS: BP 124/58
[2018-09-06] MEDS: HYDROCORTISONE 10 MG TABLET PO SCH (09:33)
== END 2018-09-06 10:18 | disposition home or self-care (01) | DRG 314 ==
LOC: N.CC 19:08 → SUATTDRO 19:08 → N.5E 09-05 10:58
PROVIDERS: ADMIT Internal Medicine; ATTEND Internal Medicine Nephrology

== ENCOUNTER 2019-01-13 08:49 | Inpatient (IN) ==
[2018-12-28 15:12] LABS: Basophils % 0.5 % (0.0-0.8); Eosinophils # 0.3 10*3/uL (0.0-0.87); Eosinophils % 5.7 % (0.00-10.9); Hematocrit 37.3 VOL% (42.0-52.0); Hemoglobin 11.8 GM/DL (14.0-18.0); Immature Granulocytes % 0.3 %; Immature Granulocytes Absolute 0.02 #; Lymphocytes # 1.5 10*3/uL (1.4-4.0); Lymphocytes % 25.5 % (21.2-54.2); Mean Corpuscular HGB Conc 31.6 GM/DL (32-36); Mean Corpuscular Volume 96.1 FL (87-102); Mean Platelet Volume 10.2 FL (9.6-12.0); Monocytes % 7.6 % (1.7-12.7); Neutrophils % 60.4 % (38.7-73.9); Platelet Count 147 T/CUMM (130-400); Red Blood Count 3.88 MC/CUMM (3.8-5.5); Red Cell Distribution Width 15.9 % (9.3-17.3); White Blood Count 5.9 T/CUMM (4-12)
[2018-12-28 15:32] LABS: Calcium 7.9 MG/DL (8.5-10.1); Osmolality,Calculated 276.7 MOS/KG (273-304)
[~2019-01-13 08:49] MED LIST: ceFAZolin 1,000 MG in SYRINGE 1 EACH IV ONE
[2019-01-13] MEDS: SODIUM CHLORIDE 0.9% 250 ML IV SCH ×2 (10:00→13:56)
[2019-01-13 10:05] LABS: Hematocrit 34.7 VOL% (42.0-52.0); Hemoglobin 11.1 GM/DL (14.0-18.0)
[2019-01-13] MEDS ORDERED: DEXTROSE 5% 100 ML IV STA (10:12)
[2019-01-13] MEDS ORDERED: cloNIDine 0.1 MG TABLET ONE (10:22)
[2019-01-13] MEDS ORDERED: ceFAZolin 1,000 MG VIAL ONE (10:22)
[2019-01-13] MEDS ORDERED: FAMOTIDINE 20 MG TABLET PO ONE (10:26)
[2019-01-13] MEDS ORDERED: cloNIDine 0.1 MG TABLET PO ONE (10:30)
[2019-01-13] MEDS ORDERED: HEPARIN 5,000 UNIT/1 ML VIAL ONE (12:01)
[2019-01-13] MEDS ORDERED: BUPIVACAINE 0.5% 50 ML VIAL ONE (12:01)
[2019-01-13] MEDS ORDERED: LIDOCAINE MPF 1% /EPI 30 ML VIAL ONE (12:02)
[2019-01-13] MEDS ORDERED: DEXTROSE 50% 25 GM/50 ML VIAL IV ONE (13:22)
[2019-01-13] MEDS ORDERED: ePHEDrine 50 MG/ML AMP ONE ×2 (13:26→17:15)
[2019-01-13] MEDS ORDERED: PROPOFOL 200 MG/20 ML VIAL IV ONE (13:26)
[2019-01-13] MEDS ORDERED: fentaNYL 100 MCG/2 ML VIAL ONE (13:26)
[2019-01-13] MEDS ORDERED: LIDOCAINE 2% 5 ML VIAL ONE (13:26)
[2019-01-13] MEDS ORDERED: GLYCOPYRROLATE 0.4 MG/2 ML VIAL ONE (13:27)
[2019-01-13] MEDS ORDERED: SODIUM CHLORIDE 0.9% 250 ML IV ONE ×2 (13:27→14:35)
[2019-01-13] MEDS ORDERED: MIDAZOLAM 2 MG/2 ML VIAL ONE ×2 (13:27→17:16)
[2019-01-13] MEDS ORDERED: SODIUM CHLORIDE 0.9% 500 ML IV ONE (15:07)
[2019-01-13] MEDS ORDERED: PHENYLEPHRINE DRIP 40 MG/250 ML PREMIX IV ONE (15:08)
[2019-01-13 15:14] LABS: Hematocrit 25.7 VOL% (42.0-52.0); Hemoglobin 8.1 GM/DL (14.0-18.0)
[2019-01-13] MEDS ORDERED: TISSUE ADHESIVE 1 EACH APPLICATOR TOP ONE (15:50)
[2019-01-13] MEDS ORDERED: LIDOCAINE 1% 20 ML VIAL ONE (15:50)
[2019-01-13] MEDS ORDERED: BUPIVACAINE 0.25% /EPI 10 ML VIAL ONE (15:50)
[2019-01-13] MEDS ORDERED: MICROFIBRILLAR COLLAGEN POWDER 1 GM CAN TOP ONE (16:34)
[2019-01-13] MEDS ORDERED: GLUCAGON 1 MG VIAL IM PRN ×2 (16:49→19:46)
[2019-01-13] MEDS ORDERED: MORPHINE 4 MG/1 ML VIAL IV PRN (16:49)
[2019-01-13] MEDS ORDERED: DEXTROSE 10% 25 GM/250 ML BAG IV PRN (16:49)
[2019-01-13] MEDS ORDERED: ONDANSETRON 4 MG/2 ML VIAL IV PRN (16:49)
[2019-01-13] MEDS: PHENYLEPHRINE DRIP 40 MG/250 ML PREMIX IV PRN ×4 (17:00→23:38)
[2019-01-13] MEDS ORDERED: ALBUMIN 5% 12.5 GM/250 ML VIAL IV ONE (17:15)
[2019-01-13] MEDS ORDERED: KETAMINE 500 MG/10 ML VIAL ONE (17:16)
[2019-01-13] MEDS ORDERED: SODIUM CHLORIDE 0.9% 1,000 ML IV PRN (18:09)
[2019-01-13 18:42] LABS: Hematocrit 26.5 VOL% (42.0-52.0); Hemoglobin 7.8 GM/DL (14.0-18.0)
[2019-01-13] MEDS ORDERED: DEXTROSE 50% 25 GM/50 ML VIAL IV PRN (19:46)
[2019-01-13] MEDS ORDERED: SODIUM CHLORIDE 0.9% 1,000 ML IV ONE (19:50)
[2019-01-13] MEDS ORDERED: MIDODRINE 5 MG TABLET PO PRN (19:51)
[2019-01-13] MEDS ORDERED: MEROPENEM 1,000 MG in SODIUM CHLORIDE 0.9% 100 ML IV SCH (20:00)
[2019-01-13] MEDS ORDERED: DOPamine 800 MG/250 ML PREMIX IV ONE (20:08)
[2019-01-13] MEDS ORDERED: DOPamine 800 MG/250 ML PREMIX IV PRN (20:12)
[2019-01-13 22:06] LABS: Basophils # 0.1 10*3/uL (0.0-0.2); Basophils % 0.4 % (0.0-0.8); Eosinophils # 0.1 10*3/uL (0.0-0.87); Eosinophils % 0.5 % (0.00-10.9); Hematocrit 34.1 VOL% (42.0-52.0); Hemoglobin 10.9 GM/DL (14.0-18.0); Immature Granulocytes % 1.5 %; Immature Granulocytes Absolute 0.29 #; Lymphocytes # 2.2 10*3/uL (1.4-4.0); Lymphocytes % 11.5 % (21.2-54.2); Mean Corpuscular Volume 92.7 FL (87-102); Mean Platelet Volume 11.6 FL (9.6-12.0); Monocytes % 3.8 % (1.7-12.7); Neutrophils % 82.3 % (38.7-73.9); Platelet Count 99 T/CUMM (130-400); Red Blood Count 3.68 MC/CUMM (3.8-5.5); White Blood Count 19.2 T/CUMM (4-12)
[2019-01-13 22:17] LABS: INR 1.5
[2019-01-13] MEDS: MEROPENEM 500 MG in SODIUM CHLORIDE 0.9% 100 ML IV SCH (22:17)
[2019-01-13] MEDS: ATORVASTATIN 80 MG TABLET PO SCH (22:17)
[2019-01-13] MEDS: ESCITALOPRAM 10 MG TABLET PO SCH (22:17)
[2019-01-13] MEDS: INSULIN REGULAR 100 UNIT/ML SUBCUT SCH (22:18)
[2019-01-13 22:20] LABS: Albumin 2.6 G/DL (3.4-5.0); Bilirubin,Total 0.8 MG/DL (0.2-1.0); Calcium 6.7 MG/DL (8.5-10.1); Osmolality,Calculated 277.5 MOS/KG (273-304); Total Protein 5.2 G/DL (6.4-8.3)
[2019-01-13 22:28] LABS: Partial Thromboplastin Time 56.9 SECS (20.8-36.0)
[2019-01-13] MEDS: METOCLOPRAMIDE 10 MG/2 ML VIAL IV SCH (23:20)
[2019-01-14 02:20] LABS: Basophils # 0.1 10*3/uL (0.0-0.2); Basophils % 0.3 % (0.0-0.8); Hematocrit 30.8 VOL% (42.0-52.0); Immature Granulocytes % 1.3 %; Immature Granulocytes Absolute 0.31 #; Lymphocytes # 0.9 10*3/uL (1.4-4.0); Lymphocytes % 3.7 % (21.2-54.2); Mean Corpuscular HGB Conc 32.5 GM/DL (32-36); Mean Corpuscular Volume 91.1 FL (87-102); Mean Platelet Volume 11.3 FL (9.6-12.0); Monocytes % 6.1 % (1.7-12.7); Neutrophils % 88.6 % (38.7-73.9); Platelet Count 111 T/CUMM (130-400); Red Blood Count 3.38 MC/CUMM (3.8-5.5); Red Cell Distribution Width 16.3 % (9.3-17.3)
[2019-01-14 02:53] LABS: Calcium 7.4 MG/DL (8.5-10.1); Osmolality,Calculated 279.4 MOS/KG (273-304)
[2019-01-14 03:49] LABS: Lymphocytes 3 % (20-55); Segmented Neutrophils 95 % (50-85); Total Cells Counted 100
[2019-01-14 03:51] LABS: Anisocytosis Slight; Microcytosis Slight; Polychromasia Slight
[2019-01-14 03:52] LABS: Ovalocytes Slight; Platelet Estimate Adequate
[2019-01-14] MEDS: METOCLOPRAMIDE 10 MG/2 ML VIAL IV SCH ×3 (05:28→17:31)
[2019-01-14] MEDS: FAMOTIDINE 20 MG TABLET PO SCH (08:41)
[2019-01-14] MEDS: INSULIN REGULAR 100 UNIT/ML SUBCUT SCH ×4 (08:42→20:04)
[2019-01-14] MEDS: MEROPENEM 500 MG in SODIUM CHLORIDE 0.9% 100 ML IV SCH ×2 (08:46→21:17)
[2019-01-14 09:53] LABS: Hematocrit 24.1 VOL% (42.0-52.0); Hemoglobin 7.9 GM/DL (14.0-18.0)
[2019-01-14] MEDS: PHENYLEPHRINE DRIP 40 MG/250 ML PREMIX IV PRN (10:38)
[2019-01-14] MEDS ORDERED: SODIUM CHLORIDE 0.9% 1,000 ML IV PRN (11:43)
[2019-01-14 12:04] LABS: Hematocrit 23.8 VOL% (42.0-52.0)
[2019-01-14 12:08] LABS: Hemoglobin 7.8 GM/DL (14.0-18.0)
[2019-01-14 12:22] LABS: INR 1.3; PT Patient Result 13.6 SECS (9.6-12.2); Partial Thromboplastin Time 30.8 SECS (20.8-36.0)
[2019-01-14] MEDS ORDERED: HEPARIN 10,000 UNIT/10 ML VIAL IV PRN (14:50)
[2019-01-14] MEDS ORDERED: EPOETIN ALFA 10,000 UNIT/1 ML VIAL IV PRN (16:27)
[2019-01-14 19:11] LABS: Hematocrit 30.7 VOL% (42.0-52.0); Hemoglobin 10.3 GM/DL (14.0-18.0)
[2019-01-14 20:02] LABS: Hematocrit 29.2 VOL% (42.0-52.0)
[2019-01-14] MEDS: MIDODRINE 5 MG TABLET PO SCH (21:17)
[2019-01-14] MEDS: ESCITALOPRAM 10 MG TABLET PO SCH (21:17)
[2019-01-14] MEDS: ATORVASTATIN 80 MG TABLET PO SCH (21:18)
[2019-01-14 23:53] LABS: Hemoglobin 9.4 GM/DL (14.0-18.0)
[2019-01-15] MEDS: METOCLOPRAMIDE 10 MG/2 ML VIAL IV SCH ×2 (01:16→06:37)
[2019-01-15 04:47] LABS: Basophils % 0.3 % (0.0-0.8); Eosinophils % 0.1 % (0.00-10.9); Hematocrit 28.1 VOL% (42.0-52.0); Hemoglobin 9.3 GM/DL (14.0-18.0); Immature Granulocytes % 0.7 %; Immature Granulocytes Absolute 0.08 #; Lymphocytes # 1.2 10*3/uL (1.4-4.0); Lymphocytes % 10.5 % (21.2-54.2); Mean Corpuscular HGB Conc 33.1 GM/DL (32-36); Mean Corpuscular Volume 90.1 FL (87-102); Mean Platelet Volume 10.6 FL (9.6-12.0); Monocytes % 7.9 % (1.7-12.7); Neutrophils % 80.5 % (38.7-73.9); Platelet Count 76 T/CUMM (130-400); Red Blood Count 3.12 MC/CUMM (3.8-5.5); Red Cell Distribution Width 15.2 % (9.3-17.3); White Blood Count 11.8 T/CUMM (4-12)
[2019-01-15 05:10] LABS: Calcium 7.9 MG/DL (8.5-10.1); Osmolality,Calculated 271.8 MOS/KG (273-304)
[2019-01-15 05:24] LABS: INR 1.2; PT Patient Result 13.1 SECS (9.6-12.2); Partial Thromboplastin Time 32.4 SECS (20.8-36.0)
[2019-01-15 05:33] LABS: Anisocytosis 1+
[2019-01-15 05:34] LABS: Acanthocytes Few; Platelet Estimate Decreased
[2019-01-15] MEDS: INSULIN REGULAR 100 UNIT/ML SUBCUT SCH ×2 (08:25→12:07)
[2019-01-15] MEDS: FAMOTIDINE 20 MG TABLET PO SCH (08:25)
[2019-01-15] MEDS: MIDODRINE 5 MG TABLET PO SCH (08:25)
[2019-01-15] MEDS: AMIODARONE 200 MG TABLET PO SCH (10:17)
[2019-01-15] MEDS ORDERED: hydrALAZINE 20 MG/1 ML VIAL IV ONE (16:07)
[2019-01-15] MEDS: LOSARTAN 50 MG TABLET PO SCH (16:14)
[2019-01-15] MEDS: ESCITALOPRAM 10 MG TABLET PO SCH (21:39)
[2019-01-15] MEDS: ATORVASTATIN 80 MG TABLET PO SCH (21:39)
[2019-01-15] MEDS: MEROPENEM 500 MG in SODIUM CHLORIDE 0.9% 100 ML IV SCH (21:40)
[2019-01-16 07:14] LABS: Basophils % 0.3 % (0.0-0.8); Eosinophils # 0.2 10*3/uL (0.0-0.87); Eosinophils % 2.1 % (0.00-10.9); Hematocrit 29.7 VOL% (42.0-52.0); Hemoglobin 9.5 GM/DL (14.0-18.0); Immature Granulocytes % 0.6 %; Immature Granulocytes Absolute 0.05 #; Lymphocytes # 1.6 10*3/uL (1.4-4.0); Lymphocytes % 17.8 % (21.2-54.2); Mean Corpuscular Volume 92.2 FL (87-102); Mean Platelet Volume 11.4 FL (9.6-12.0); Monocytes % 7.5 % (1.7-12.7); Neutrophils % 71.7 % (38.7-73.9); Platelet Count 87 T/CUMM (130-400); Red Blood Count 3.22 MC/CUMM (3.8-5.5); White Blood Count 8.9 T/CUMM (4-12)
[2019-01-16 07:30] LABS: Calcium 8.1 MG/DL (8.5-10.1); Osmolality,Calculated 268.2 MOS/KG (273-304)
[2019-01-16 07:42] LABS: Microcytosis Slight; Ovalocytes Few; Polychromasia Slight
[2019-01-16 07:43] LABS: Burr Cells Slight; Hypochromasia Slight; Platelet Estimate Decreased
[2019-01-16] MEDS: FAMOTIDINE 20 MG TABLET PO SCH (08:00)
[2019-01-16] MEDS: LOSARTAN 50 MG TABLET PO SCH ×3 (08:00→20:45)
[2019-01-16] MEDS: AMIODARONE 200 MG TABLET PO SCH (08:01)
[2019-01-16] MEDS: hydrALAZINE 20 MG/1 ML VIAL IV PRN (11:40)
[2019-01-16] MEDS ORDERED: GLUCAGON 1 MG VIAL IM PRN (12:19)
[2019-01-16] MEDS ORDERED: DEXTROSE 10% 250 ML BAG IV PRN (12:19)
[2019-01-16] MEDS: MEROPENEM 500 MG in SODIUM CHLORIDE 0.9% 100 ML IV SCH (20:44)
[2019-01-16] MEDS: ESCITALOPRAM 10 MG TABLET PO SCH (20:45)
[2019-01-16] MEDS: ATORVASTATIN 80 MG TABLET PO SCH (20:46)
[2019-01-17] MEDS: hydrALAZINE 20 MG/1 ML VIAL IV PRN ×2 (01:52→05:43)
[2019-01-17 05:40] LABS: Basophils % 0.4 % (0.0-0.8); Eosinophils # 0.3 10*3/uL (0.0-0.87); Eosinophils % 3.3 % (0.00-10.9); Hematocrit 30.3 VOL% (42.0-52.0); Hemoglobin 9.9 GM/DL (14.0-18.0); Immature Granulocytes % 0.5 %; Immature Granulocytes Absolute 0.04 #; Lymphocytes # 1.4 10*3/uL (1.4-4.0); Lymphocytes % 16.5 % (21.2-54.2); Mean Corpuscular HGB Conc 32.7 GM/DL (32-36); Mean Platelet Volume 10.9 FL (9.6-12.0); Monocytes % 9.5 % (1.7-12.7); Neutrophils % 69.8 % (38.7-73.9); Platelet Count 100 T/CUMM (130-400); Red Blood Count 3.33 MC/CUMM (3.8-5.5); Red Cell Distribution Width 14.7 % (9.3-17.3); White Blood Count 8.5 T/CUMM (4-12)
[2019-01-17 07:06] VITALS: BP 135/56
[2019-01-17] MEDS: LOSARTAN 50 MG TABLET PO SCH (08:44)
[2019-01-17] MEDS: AMIODARONE 200 MG TABLET PO SCH (08:44)
[2019-01-17] MEDS: FAMOTIDINE 20 MG TABLET PO SCH (08:44)
== END 2019-01-17 13:39 | disposition home or self-care (01) | DRG 907 ==
LOC: N.OR 08:49 → N.SDSINP 08:50 → N.ICU 17:12 → N.3E 01-15 16:29
PROVIDERS: ADMIT Surgery; ATTEND Surgery